=== PATIENT | female | born 1990 | race African-American/Black ===

== ENCOUNTER 2021-08-18 21:47 | Emergency (ER) | payer OTHER ==
[~2021-08-18] VITALS: Ht 160 cm; Wt 82.6 kg
[2021-08-18] MEDS ORDERED: AMLODIPINE-OLM1 EAC2 (21:58)
[2021-08-19] MEDS ORDERED: LEVSIN/SL0.125 MG SL (02:17)
== END 2021-08-19 02:28 | disposition home or self-care (01) ==
LOC: ER 21:47
DX: K29.70 Gastritis, unspecified, without bleeding (principal); K80.20 Calculus of gallbladder without cholecystitis without obstruction